=== PATIENT | male | born 1990 | race Caucasian/White ===

== ENCOUNTER 2018-05-12 21:50 | Emergency (ER) | payer OTHER ==
[2018-05-12 22:29] VITALS: BP 111/81; PULSE 73; TEMP 98.2; BMI 23.0
[2018-05-13] MEDS ORDERED: IBUPROFEN 400 MG TABLET (FP) PO ONE ×2 (00:53→00:58)
--- NOTE | 2018-05-13 00:57 | PDOC ---
History of Present Illness - General Chief Complaint: Pain Stated Complaint: FALL SHOULDER PAIN Time Seen by Provider: 05/12/18 23:03 Past History - Past Medical History Allergies/Adverse Reactions: Allergies Allergy/AdvReac Type Severity Reaction Status Date / Time No Known Allergies Allergy Verified 05/12/18 22:28 Home Medications: Ambulatory Orders NK [No Known Home Medication] 05/13/18 COPD: No - Suicide/Smoking/Psychosocial Hx Smoking History: Current every day smoker Have you smoked in the past 12 months: Yes Number of Cigarettes Smoked Daily: 3 Information on smoking cessation initiated: No Hx Alcohol Use: No Drug/Substance Use Hx: No *Physical Exam - Vital Signs Last Vital Signs Temp Pulse Resp BP Pulse Ox 98.2 F 73 17 111/81 100 05/12/18 22:24 05/12/18 22:24 05/12/18 22:24 05/12/18 22:24 05/12/18 22:24 Moderate Sedation - Procedure Monitoring Vital Signs: Procedure Monitoring Vital Signs Temperature 98.2 F 05/12/18 22:24 Pulse Rate 73 05/12/18 22:24 Respiratory Rate 17 05/12/18 22:24 Blood Pressure 111/81 05/12/18 22:24 O2 Sat by Pulse Oximetry (%) 100 05/12/18 22:24 ED Treatment Course - RADIOLOGY Radiology Studies Ordered: Category Date Time Status ELBOW-RIGHT [RAD] Stat Radiology 05/13/18 00:53 Ordered SHOULDER-RIGHT [RAD] Stat Radiology 05/13/18 00:53 Ordered WRIST- RIGHT [RAD] Stat Radiology 05/13/18 00:53 Ordered Medical Decision Making - Medical Decision Making 28 y/o M with no sig pmh presents s/p fall yesterday c/o R shoulder pain. States he slipped on rock, landing on outstretched R hand; feels slight pain in wrist and shoulder, but most of pain is in his R shoulder. Denies head/neck pain , numbness/tingling of extremities, LOC Xrays reviewed and unremarkable Possible shoulder strain Sling given for comfort Will refer to ortho 05/13/18 00:57 *DC/Admit/Observation/Transfer Diagnosis at time of Disposition: Right shoulder strain Qualifiers: Encounter type: initial encounter Qualified Code(s): S46.911A - Strain of unspecified muscle, fascia and tendon at shoulder and upper arm level, right arm , initial encounter - Discharge Dispostion Disposition: HOME Condition at time of disposition: Stable Decision to Admit order: No - Referrals Referrals: Ney Maurice MD [Staff Physician] - Call tomorrow - Patient Instructions Printed Discharge Instructions: How to Use a Sling, DI for Shoulder Pain Additional Instructions: Thank you for choosing [facility]. It was a pleasure taking care of you. Your x-rays were normal. You may take Motrin 600 mg every 4 hours by mouth as needed for mild to moderate pain. Take Motrin with food. Follow-up with orthopedics. Return to the Emergency Department if your symptoms worsen or persist or other concerning symptoms. - Post Discharge Activity
== END 2018-05-13 01:45 | disposition home or self-care (01) ==
LOC: JER 21:50
DX: S46.811A Strain of other muscles, fascia and tendons at shoulder and upper arm level, right arm, initial encounter (principal); W01.198A Fall on same level from slipping, tripping and stumbling with subsequent striking against other object, initial encounter; Y93.89 Activity, other specified; Y92.89 Other specified places as the place of occurrence of the external cause; Y99.8 Other external cause status
CPT/HCPCS: 73030-TC-RT-FY; 73070-TC-RT-FY; 73110-TC-RT-FY; 99282-25